=== PATIENT | male | born 2000 | race Caucasian/White ===

== ENCOUNTER 2020-10-24 19:26 | Emergency (ER) | payer OTHER ==
[~2020-10-24] VITALS: Ht 180.3 cm; Wt 75.0 kg
[2020-10-24 19:35] VITALS: TEMP 98.1
[2020-10-24 21:01] VITALS: BP 129/87; PULSE 83
== END 2020-10-24 21:01 | disposition home or self-care (01) ==
LOC: COL.ER 19:26
DX: S61.217A Laceration without foreign body of left little finger without damage to nail, initial encounter (principal); W26.8XXA Contact with other sharp object(s), not elsewhere classified, initial encounter

== ENCOUNTER 2020-10-25 18:09 | Emergency (ER) | payer OTHER ==
[~2020-10-25] VITALS: Ht 180.3 cm; Wt 75.0 kg
[2020-10-25 18:29] VITALS: TEMP 98.9
[2020-10-25 20:04] VITALS: BP 120/84; PULSE 82
== END 2020-10-25 22:01 | disposition home or self-care (01) ==
LOC: COL.ER 18:09
DX: S63.501A Unspecified sprain of right wrist, initial encounter (principal); V00.131A Fall from skateboard, initial encounter; Y93.51 Activity, roller skating (inline) and skateboarding